=== PATIENT | male | born 1965 | race Two or more races ===

== ENCOUNTER 2025-09-29 20:44 | Emergency (ER) | payer BC ==
[~2025-09-29] VITALS: Ht 185.4 cm; Wt 85.7 kg
[2025-09-29] MEDS ORDERED: CEPH-570 PO (21:01)
[2025-09-29] MEDS ORDERED: TDAP [DIPH/PERTUSSIS/TET] 0.5 ML VIAL IM ONE (21:04)
--- NOTE | 2025-09-29 21:04 | NUR ---
wound care done
--- NOTE | 2025-09-29 21:04 | NUR ---
BIBS CUT LEFT PALM WHILE CUTTING TURKEY, UNKNOWN LAST TDAP
[2025-09-29 21:05] VITALS: TEMP 98.6
[2025-09-29] MEDS: TDAP [DIPH/PERTUSSIS/TET] 0.5 ML VIAL IM ONE (21:13)
--- NOTE | 2025-09-29 21:24 | NUR ---
Patient discharged to home in stable condition. Written and verbal after care instructions given. Patient verbalizes understanding of instruction.
[2025-09-29 21:25] VITALS: BP 139/88; O2SAT 98
== END 2025-09-29 21:26 | disposition home or self-care (01) ==
LOC: ER 20:51
DX: S61.412A Laceration without foreign body of left hand, initial encounter (principal); Z91.048 Other nonmedicinal substance allergy status; Z23 Encounter for immunization; W26.8XXA Contact with other sharp object(s), not elsewhere classified, initial encounter; Y93.89 Activity, other specified; Y92.89 Other specified places as the place of occurrence of the external cause; Y99.8 Other external cause status
CPT/HCPCS: 90715